=== PATIENT | male | born 1950 | race Caucasian/White ===

== ENCOUNTER 2020-05-27 06:20 | Observation (INO) ==
[~2020-05-27 06:20] MED LIST: Buffered Lidocaine 1% SYRIN 1 ml INTRADERM ONE; Lactated Ringers 1000 ml BAG 1,000 ML IV SCH
[2020-05-27] MEDS ORDERED: ceFAZolin 2 GM PREMIX 2 GM/50 ML BAG ONE (06:49)
[2020-05-27] MEDS ORDERED: Dexamethasone IV 4 MG/ML VIAL 1 ml VIAL ONE (07:10)
[2020-05-27] MEDS ORDERED: ROPIVACAINE 5 MG/ML 30 ML BTL (0.5%) ONE ×2 (07:10→07:30)
[2020-05-27] MEDS ORDERED: Midazolam 2 mg/2 ml VIAL 1 mg/ml 2 ml VIAL (2 mg) ONE ×2 (07:12→08:27)
[2020-05-27 07:30] LABS: Hematocrit 41 % (42-52); Hemoglobin 13.9 g/dL (14.0-18.0); Mean Corpuscular HGB Conc 34 g/dL (31-36); Mean Corpuscular Hemoglobin 32 pg (27-31); Mean Corpuscular Volume 95 fL (80-94); Mean Platelet Volume 9.2 fL (7.4-10.4); Platelet Count 239 10^3/uL (150-450); Red Blood Count 4.32 10^6 /uL (4.18-5.48); Red Cell Distribution Width 13 % (10-15); White Blood Count 7.4 10^3/uL (3.5-10.8)
[2020-05-27] MEDS ORDERED: Lidocaine 1% MPF 5 ML VIAL ONE (07:32)
[2020-05-27] MEDS ORDERED: fentaNYL 100 mcg/2 ml 50 MCG/ML VIAL ONE (08:09)
[2020-05-27] MEDS ORDERED: DiMENhydriNATE IV 50 mg/ml 1 ml VIAL IV PUSH PRN (08:49)
[2020-05-27] MEDS ORDERED: fentaNYL 100 mcg/2 ml 50 MCG/ML VIAL IV PRN (08:49)
[2020-05-27] MEDS ORDERED: Naloxone 0.4 mg VIAL 0.4 mg/ml 1 ml VIAL IV PRN (08:49)
[2020-05-27] MEDS ORDERED: Magnesium Hydroxide LIQ 30 ML UDC PO PRN (08:55)
[2020-05-27] MEDS ORDERED: diPHENhydraMINE IV 50 MG/ML 1 ml VIAL (BENADRYL) IV PRN (08:55)
[2020-05-27] MEDS ORDERED: diPHENhydraMINE 25 mg TAB PO PRN (08:55)
[2020-05-27] MEDS ORDERED: Ondansetron 4 mg VIAL 2 MG/ML 2 ml VIAL IV PRN (08:55)
[2020-05-27] MEDS ORDERED: Morphine 2 MG/ML SYRINGE IV PRN (08:55)
[2020-05-27] MEDS ORDERED: Ondansetron ODT 4 mg TAB 4 MG TAB PO PRN (08:55)
[2020-05-27] MEDS ORDERED: Lactulose 30 ml UDC PO PRN (08:55)
[2020-05-27] MEDS ORDERED: Lactated Ringers 1000 ml BAG 1,000 ML IV SCH (09:00)
[2020-05-27] MEDS ORDERED: Ondansetron 4 mg VIAL 2 MG/ML 2 ml VIAL ONE (09:03)
[2020-05-27] MEDS ORDERED: Phenylephrine IV 10 MG/ML 1 ml VIAL ONE (09:03)
[2020-05-27] MEDS ORDERED: Propofol 10 MG/ML 20 ML BTL ONE (09:19)
[2020-05-27] MEDS: Magnesium Hydroxide LIQ 30 ML UDC PO SCH ×2 (13:15→21:09)
[2020-05-27] MEDS: Vitamin THERAPEUTIC TAB PO SCH (13:15)
[2020-05-27] MEDS: ceFAZolin 1 GM ADVAN 1 GM in NS 0.9% 50 ML 50 ML IVPB SCH (18:26)
[2020-05-28] MEDS: ceFAZolin 1 GM ADVAN 1 GM in NS 0.9% 50 ML 50 ML IVPB SCH ×2 (00:48→09:00)
[2020-05-28 05:48] LABS: Hematocrit 35 % (42-52); Hemoglobin 11.8 g/dL (14.0-18.0); Mean Platelet Volume 9.4 fL (7.4-10.4); Platelet Count 193 10^3/uL (150-450)
[2020-05-28 06:07] LABS: Calcium 9.2 mg/dL (8.6-10.3); EGFR African American 89.6 (>60); EGFR Non-African American 74.1 (>60); Potassium 3.9 mmol/L (3.5-5.0)
[2020-05-28] MEDS: Magnesium Hydroxide LIQ 30 ML UDC PO SCH (07:51)
[2020-05-28] MEDS: Vitamin THERAPEUTIC TAB PO SCH (07:52)
[2020-05-28 11:14] VITALS: BP 124/61
== END 2020-05-28 12:45 | disposition home or self-care (01) ==
LOC: OR 06:20 → SSU 06:20
PROVIDERS: ADMIT Orthopaedic Surgery Adult Reconstructive Orthopaedic Surgery; ATTEND Orthopaedic Surgery Adult Reconstructive Orthopaedic Surgery